=== PATIENT | female | born 2000 | race Caucasian/White ===

== ENCOUNTER 2019-09-12 05:20 | Inpatient (IN) | payer OTHER ==
[2019-09-05 11:45] LABS: ABSOLUTE EOSINOPHILS # (AUTO) 0.2 10^3/uL (0.0-0.6); ABSOLUTE LYMPHOCYTES (AUTO) 2.4 10^3/uL (0.5-4.7); ABSOLUTE NEUT (AUTO) 7.1 10^3/uL (1.7-8.2); BASOPHILS % (AUTO) 0.3 % (0-2); EOSINOPHILS % (AUTO) 1.4 % (0-6); HEMATOCRIT 35.9 % (36.0-47.0); HEMOGLOBIN 12.5 g/dL (12.0-15.5); LYMPHOCYTES % (AUTO) 22.7 % (13-45); MEAN CORPUSCULAR HGB CONC 34.9 g/dL (32.0-36.0); MEAN CORPUSCULAR VOLUME 86 fl (80-97); MONOCYTES % (AUTO) 9.3 % (3-13); PLATELET COUNT 132 10^3/uL (150-450); RED BLOOD COUNT 4.17 10^6/uL (3.72-5.28); RED CELL DISTRIBUTION WIDTH 14.2 % (11.5-14.0); SEGMENTED NEUTROPHILS % (AUTO) 66.3 % (42-78); TOTAL CELLS COUNTED % (AUTO) 100 %; WHITE BLOOD COUNT 10.7 10^3/uL (4.0-10.5)
[2019-09-05 11:50] LABS: APPEARANCE,URINE CLOUDY; BILIRUBIN,URINE NEGATIVE (NEGATIVE); COLOR,URINE YELLOW; GLUCOSE, URINE NEGATIVE (NEGATIVE); KETONES,URINE NEGATIVE (NEGATIVE); LEUKOCYTE ESTERASE,URINE SMALL (NEGATIVE); NITRITE,URINE NEGATIVE (NEGATIVE); PROTEIN,URINE NEGATIVE (NEGATIVE); URINE SPECIFIC GRAVITY 1.005; UROBILINOGEN,URINE NEGATIVE mg/dL (<2.0)
[2019-09-05 12:05] LABS: URINE AMPHETAMINES SCREEN NEGATIVE; URINE BARBITURATES SCREEN NEGATIVE; URINE BENZODIAZEPINES SCREEN NEGATIVE; URINE COCAINE SCREEN NEGATIVE; URINE MARIJUANA (THC) SCREEN NEGATIVE; URINE METHADONE SCREEN NEGATIVE; URINE PHENCYCLIDINE SCREEN NEGATIVE
[~2019-09-12 05:20] MED LIST: CEFAZOLIN SODIUM 2 GM in DEXTROSE 5%-WATER 100 ML IV PRN; LACTATED RINGERS 1000 ML IV PRN; LIDOCAINE 0.5% INJ-PF (5 MG/ML) 50 ML SDV SUBCUT PRN; RINGERS SOLUTION,LACTATED 1,000 ML IV PRN
[2019-09-12 06:46] LABS: HEMATOCRIT 34.4 % (36.0-47.0); HEMOGLOBIN 11.9 g/dL (12.0-15.5); MEAN CORPUSCULAR HEMOGLOBIN 29.7 pg (27.0-33.4); MEAN CORPUSCULAR HGB CONC 34.7 g/dL (32.0-36.0); MEAN CORPUSCULAR VOLUME 86 fl (80-97); PLATELET COUNT 129 10^3/uL (150-450); RED BLOOD COUNT 4.01 10^6/uL (3.72-5.28); RED CELL DISTRIBUTION WIDTH 14.6 % (11.5-14.0); WHITE BLOOD COUNT 11.2 10^3/uL (4.0-10.5)
[2019-09-12 06:49] LABS: APPEARANCE,URINE CLEAR; BILIRUBIN,URINE NEGATIVE (NEGATIVE); COLOR,URINE STRAW; GLUCOSE, URINE NEGATIVE (NEGATIVE); KETONES,URINE NEGATIVE (NEGATIVE); LEUKOCYTE ESTERASE,URINE NEGATIVE (NEGATIVE); NITRITE,URINE NEGATIVE (NEGATIVE); PROTEIN,URINE NEGATIVE (NEGATIVE); URINE SPECIFIC GRAVITY 1.006; UROBILINOGEN,URINE NEGATIVE mg/dL (<2.0)
[2019-09-12 07:02] LABS: URINE AMPHETAMINES SCREEN NEGATIVE; URINE BARBITURATES SCREEN NEGATIVE; URINE BENZODIAZEPINES SCREEN NEGATIVE; URINE COCAINE SCREEN NEGATIVE; URINE MARIJUANA (THC) SCREEN NEGATIVE; URINE METHADONE SCREEN NEGATIVE; URINE PHENCYCLIDINE SCREEN NEGATIVE
[2019-09-12 07:09] LABS: ABSOLUTE LYMPHOCYTES# (MANUAL) 3.1 10^3/uL (0.5-4.7); ABSOLUTE MONOCYTES # (MANUAL) 1.2 10^3/uL (0.1-1.4); ANISOCYTOSIS SLIGHT; BAND NEUTROPHILS % (MANUAL) 1 % (3-5); BASOPHILS % (MANUAL) 0 % (0-2); EOSINOPHILS % (MANUAL) 3 % (0-6); LYMPHOCYTES % (MANUAL) 24 % (13-45); MONOCYTES % (MANUAL) 11 % (3-13); PLATELET COMMENT DECREASED; SEGMENTED NEUTROPHILS % (MAN) 57 % (42-78); TOTAL CELLS COUNTED 100
[2019-09-12 07:13] LABS: TOXIC GRANULATION SLIGHT
[2019-09-12] MEDS ORDERED: FENTANYL CITRATE INJ/PF 100 MCG/2 ML AMPUL ONE ×2 (07:26→21:51)
[2019-09-12] MEDS ORDERED: MIDAZOLAM 2 MG/2 ML INJ ONE ×2 (07:26→21:51)
[2019-09-12] MEDS ORDERED: ACETAMINOPHEN 1,000 MG/100 ML RTUPB IV ONE (07:26)
[2019-09-12] MEDS ORDERED: PHENYLEPHRINE HCL INJ/PF 10 MG/1 ML SDV ONE ×2 (07:26→09:52)
[2019-09-12] MEDS ORDERED: KETOROLAC TROMETHAMINE INJ/PF 30 MG/1 ML SDV ONE (07:26)
[2019-09-12] MEDS ORDERED: OXYTOCIN 10 UNIT/ML VIAL ONE (07:26)
[2019-09-12] MEDS ORDERED: EPHEDRINE SULFATE INJ 50 MG/1 ML AMPULE ONE (07:26)
[2019-09-12] MEDS ORDERED: ONDANSETRON HCL INJ/PF 4 MG/2 ML SDV ONE ×2 (07:26→09:52)
[2019-09-12] MEDS ORDERED: METHYLERGONOVINE MALEATE INJ/PF 0.2 MG/1 ML AMPULE ONE (07:27)
[2019-09-12] MEDS ORDERED: FENTANYL CITRATE INJ/PF 100 MCG/2 ML AMPUL IV PRN ×6 (08:36→22:51)
[2019-09-12] MEDS ORDERED: MORPHINE SULFATE 10 MG/ML INJ IV PRN ×2 (08:36→09:49)
[2019-09-12] MEDS ORDERED: ONDANSETRON HCL INJ/PF 4 MG/2 ML SDV IV PRN ×2 (08:36→22:51)
[2019-09-12] MEDS ORDERED: DIPHENHYDRAMINE HCL 50 MG/ML VIAL IV PRN ×2 (08:36→22:51)
[2019-09-12] MEDS ORDERED: PROMETHAZINE HCL INJ 25 MG/1 ML VIAL IV PRN ×4 (08:36→22:51)
[2019-09-12] MEDS ORDERED: OXYCODONE-ACETAMINOPHEN 5-325 MG TABLET PO PRN ×3 (08:36→09:49)
[2019-09-12] MEDS ORDERED: MEPERIDINE HCL/PF INJ 25 MG/1 ML DISP.SYRIN IV PRN ×2 (08:36→22:51)
[2019-09-12] MEDS ORDERED: HYDROMORPHONE HCL INJ/PF 2 MG/ML AMPULE ONE ×2 (09:00→21:51)
[2019-09-12] MEDS ORDERED: HYDROMORPHONE HCL INJ/PF 2 MG/ML AMPULE IV ONE (09:03)
[2019-09-12] MEDS ORDERED: BUPIVACAINE HCL 0.25 % INJ/PF (2.5 MG/1 ML) 30 ML VIAL ONE (09:28)
[2019-09-12] MEDS ORDERED: PROPOFOL INJ 200 MG/20 ML VIAL IV ONE ×2 (09:40→21:51)
[2019-09-12] MEDS ORDERED: OXYTOCIN/0.9 % SODIUM CHLORIDE 30 UNIT/500 ML RTUINJ IV PRN (09:49)
[2019-09-12] MEDS ORDERED: SIMETHICONE 80 MG TAB.CHEW PO PRN (09:49)
[2019-09-12] MEDS ORDERED: DIPH/PERTUSS(ACELL)/TETANUS VAC/PF 0.5 ML SYR (>=10YO) IM PRN (09:49)
[2019-09-12] MEDS ORDERED: ACETAMINOPHEN 1,000 MG/100 ML RTUPB IV PRN (09:49)
[2019-09-12] MEDS ORDERED: MEASLES,MUMPS&RUBELLA VACC/PF 0.5 ML VIAL SUBCUT PRN (09:49)
[2019-09-12] MEDS ORDERED: ACETAMINOPHEN 325 MG TABLET PO PRN (09:49)
[2019-09-12] MEDS ORDERED: NEOSTIGMINE METHYLSULFATE 10 MG/10 ML VIAL ONE (09:52)
[2019-09-12] MEDS ORDERED: ROCURONIUM BROMIDE INJ 50 MG/5 ML VIAL IV ONE (09:52)
[2019-09-12] MEDS ORDERED: DEXAMETHASONE SOD PHOSPHATE INJ 4 MG/1 ML VIAL ONE (09:52)
[2019-09-12] MEDS ORDERED: GLYCOPYRROLATE 1 MG/5 ML VIAL ONE (09:52)
[2019-09-12] MEDS ORDERED: METOCLOPRAMIDE HCL INJ/PF 10 MG/2 ML SDV ONE (09:52)
--- NOTE | 2019-09-12 09:59 | Operative Report ---
Operative Report DATE OF SURGERY: 09/12/19 PREOPERATIVE DIAGNOSIS: IUP @ 37 wks, di/di twins. POSTOPERATIVE DIAGNOSIS: same OPERATION: primary low transverse hysterotomy c/section SURGEON: REINA QUESADA ANESTHESIA: Spinal TISSUE REMOVED OR ALTERED: placentas COMPLICATIONS: none ESTIMATED BLOOD LOSS: 700 INTRAOPERATIVE FINDINGS: Male in cephalic presentation Apgars of 8 and 9, female also in cephalic presentation Apgars 8 and 9 PROCEDURE: PROCEDURE IN DETAIL: The patient was taken to the operating room, prepared and draped in a normal sterile fashion in a supine position with a leftward tilt. A transverse skin incision was made with a scalpel and carried through to the underlying layer of fascia with the same scalpel. The fascia was excised in the midline and extended laterally with Ravi. The fascia was then dissected from the rectus muscle sharply with Ravi and the rectus muscle was divided and the peritoneal cavity was entered sharply with the same Metzenbaum. With good visualization of the bladder and the uterus the bladder blade was inserted. The hysterotomy was nicked with a scalpel and extended laterally with surgeon finger fraction. The infant A was then delivered atraumatically. The nose and mouth were suctioned with a suction bulb, the cord was clamped and cut and handed off to awaiting pediatricians. Cord blood was collected. B was then delivered in a similar fashion .cord was clamped and cut it was handed off to awaiting pediatricians . Cord blood was collected . the placenta was removed manually. The uterus was exteriorized and cleared of clots and debris. The hysterotomy was closed with 0 Monocryl in a running, locked fashion. A second layer of the same suture was used to imbricate to ensure hemostasis. The uterus was returned to the abdomen and peritoneal cavity was cleared of clots and debris. The rectus muscle and peritoneum were repaired with mattress stitch of 2-0 Chromic. The fascia was closed with 0-Vicryl. The subcutaneous layer was closed with plain catgut and the skin was closed with 4-0 Vicryl. The patient tolerated the procedure well. Sponge, lap, and needle counts correct x2 and the patient was taken to recovery in stable condition.
[2019-09-12] MEDS: IBUPROFEN 800 MG TABLET PO SCH ×2 (15:03→20:23)
[2019-09-12] MEDS: OXYCODONE-ACETAMINOPHEN 5-325 MG TABLET PO PRN ×2 (15:04→20:22)
[2019-09-12] MEDS: RINGERS SOLUTION,LACTATED 1,000 ML IV PRN ×2 (16:12→21:26)
[2019-09-12 16:52] LABS: HEMATOCRIT 29.1 % (36.0-47.0); MEAN CORPUSCULAR HEMOGLOBIN 29.3 pg (27.0-33.4); MEAN CORPUSCULAR HGB CONC 33.7 g/dL (32.0-36.0); MEAN CORPUSCULAR VOLUME 87 fl (80-97); PLATELET COUNT 180 10^3/uL (150-450); RED BLOOD COUNT 3.34 10^6/uL (3.72-5.28); RED CELL DISTRIBUTION WIDTH 14.4 % (11.5-14.0); WHITE BLOOD COUNT 20.4 10^3/uL (4.0-10.5)
[2019-09-12 17:09] LABS: HEMOGLOBIN 9.8 g/dL (12.0-15.5)
[2019-09-12] MEDS: DOCUSATE SODIUM 100 MG CAPSULE PO SCH (18:10)
[2019-09-12] MEDS ORDERED: RINGERS SOLUTION,LACTATED 1,000 ML IV ONE (19:00)
[2019-09-12 21:01] LABS: HEMATOCRIT 23.4 % (36.0-47.0); MEAN CORPUSCULAR HEMOGLOBIN 29.7 pg (27.0-33.4); MEAN CORPUSCULAR HGB CONC 34.3 g/dL (32.0-36.0); MEAN CORPUSCULAR VOLUME 86 fl (80-97); PLATELET COUNT 181 10^3/uL (150-450); RED BLOOD COUNT 2.71 10^6/uL (3.72-5.28); RED CELL DISTRIBUTION WIDTH 14.3 % (11.5-14.0); WHITE BLOOD COUNT 20.3 10^3/uL (4.0-10.5)
[2019-09-12] MEDS ORDERED: NORMAL SALINE 250 ML IV PRN ×2 (21:05)
[2019-09-12] MEDS ORDERED: CEFAZOLIN 2 GM/D5W RTU 2 GM/50 ML RTUPB IV PRN (21:06)
[2019-09-12] MEDS ORDERED: CEFAZOLIN INJ 1 GM VIAL ONE (21:35)
[2019-09-12] MEDS ORDERED: LIDOCAINE 2% INJ-PF (20 MG/ML) 10 ML AMPUL ONE (21:51)
--- NOTE | 2019-09-13 00:16 | Operative Report ---
Operative Report DATE OF SURGERY: 09/12/19 PREOPERATIVE DIAGNOSIS: Postoperative hemorrhage POSTOPERATIVE DIAGNOSIS: Same OPERATION: Exploratory laparotomy with evacuation of hematoma and ligation of corner block cutter vessels SURGEON: REINA QUESADA ANESTHESIA: GA COMPLICATIONS: None ESTIMATED BLOOD LOSS: 2500 cc INTRAOPERATIVE FINDINGS: Approximately 2 L of coagulated blood in the abdomen, lots of bleeding from greater vessel on the rectus muscle, and a small ruptured vessel in the peritoneum. PROCEDURE: This is a patient who had become hypotensive on the floor post op from her primary section for that was performed for twin gestation. Evaluation of the patient noted that her hemoglobin level had dropped acutely from her preoperative level of 11.9 down to 8.0. Her abdomen was distended very tender to palpation patient was having difficulty taking a deep breath due to pain. Also noted to be very pale her conjunctiva was well injected capillary refill was normal. [place] that the patient must have an internal bleeding the decision was made to go to the operating room for a exploratory laparotomy counseling the patient and her appropriately. In the OR the patient was prepared and draped in normal sterile fashion in supine position under general anesthesia. Patient's Pfannenstiel incision was reopened using scissors to remove removal of the previous sutures. The fascia was divided and the rectus muscle was divided as well and there was noted to be the above findings with a large amount of blood clot in the patient's abdomen. Suction and evacuated the pool suction. For the abdomen thoroughly looking for evidence of fresh bleeding. There was some larger vessels that were noted on the rectus muscle that were not actively bleeding however they did seem to possibly be the source of this okay let coagulated blood. Vessels were tied off with 0 Vicryl. The hysterotomy was carefully inspected after exteriorizing of the uterus. It seemed to possibly be a small amount of oozing coming from the right lateral aspect of the hysterotomy and this was tied off with a figure-of-e ight 0 Vicryl. We continued exploration of the abdomen as we were noting that there is still some pooling of old blood seem to be mixed with a small amount of fresh blood as well upper abdomen in the paracolic gutter. We noted that on the peritoneum just above where the blood continue to pool was a roughage that seem to be oozing significantly. 2 [id number] sutures of 0 Vicryl in this rough edge in the bruising and pulling immediately improved. We continue to hold pressure on the abdomen with wet laparotomy sponges for a few more minutes currently 10 minutes, after removal of the laparotomy sponges there was no further pooling noted and no further oozing noted therefore the and was made to conclude the case was returned to the abdomen and we watched for any further bleeding. Place a piece of Interceed on the patient's hysterotomy at the right lateral lateral position. I reapproximated the peritoneum and muscle with a mattress stitch of 2-0 chromic. And closed the fascia with 0 Vicryl running. Closed the subcutaneous layer with a plain catgut and a closed the skin with 4-0 Vicryl. The patient did tolerate the procedure well the sponge lap and needle counts were correct x2. Serve the patient for several minutes in the OR postoperatively pressure was improving continue to improve in the PACU. Received 4 units of packed red blood cells surgery.
[2019-09-13] MEDS: RINGERS SOLUTION,LACTATED 1,000 ML IV PRN ×2 (01:20→09:22)
[2019-09-13] MEDS: IBUPROFEN 800 MG TABLET PO SCH ×4 (03:22→21:29)
[2019-09-13 06:11] LABS: HEMATOCRIT 32.4 % (36.0-47.0); MEAN CORPUSCULAR HEMOGLOBIN 28.6 pg (27.0-33.4); MEAN CORPUSCULAR HGB CONC 34.5 g/dL (32.0-36.0); MEAN CORPUSCULAR VOLUME 83 fl (80-97); PLATELET COUNT 119 10^3/uL (150-450); RED BLOOD COUNT 3.92 10^6/uL (3.72-5.28); RED CELL DISTRIBUTION WIDTH 18.2 % (11.5-14.0)
[2019-09-13 06:33] LABS: HEMOGLOBIN 11.2 g/dL (12.0-15.5)
--- NOTE | 2019-09-13 08:18 | PDOC PROGRESS REPORT ---
Subjective Progress Note for:: 09/13/19 Subjective:: patient feeling much better. Asking to have driscoll removed. She has been ambulating without difficulty. Reason For Visit: O82 ENCOUNTER FOR DELIVERY WITHOUT INDICA Physical Exam - Physical Exam Vital Signs: Temp Pulse Resp BP Pulse Ox 98.2 F 103 H 18 108/61 97 09/13/19 07:38 09/13/19 07:38 09/13/19 07:38 09/13/19 07:38 09/13/19 07:38 Intake & Output 09/12/19 09/13/19 09/14/19 06:59 06:59 06:59 Intake Total 4242 Output Total 3680 Balance 562 Weight 121.109 kg General appearance: PRESENT: no acute distress, cooperative GI/Abdominal exam: PRESENT: soft, tenderness - appropriately tender for post op. no drainage Result Laboratory Results: 09/13/19 05:35 09/11/19 09/12/19 09/12/19 15:57 16:38 20:45 WBC 20.4 H 20.3 H RBC 3.34 L 2.71 L Hgb 9.8 L D 8.0 L Hct 29.1 L 23.4 L MCV 87 86 MCH 29.3 29.7 MCHC 33.7 34.3 RDW 14.4 H 14.3 H Plt Count 180 181 Blood Type A NEGATIVE Antibody Screen POSITIVE 09/13/19 05:35 WBC 20.0 H RBC 3.92 Hgb 11.2 L D Hct 32.4 L MCV 83 MCH 28.6 MCHC 34.5 RDW 18.2 H Plt Count 119 L Blood Type Antibody Screen Assessment & Plan - Diagnosis (1) Qualifiers: Weeks of gestation: 37 weeks Qualified Code(s): Z3A.37 - 37 weeks gestation of Is this a current diagnosis for this admission?: Yes (2) Status post Is this a current diagnosis for this admission?: Yes (3) Post-op bleeding Qualifiers: Laterality: bilateral Is this a current diagnosis for this admission?: Yes (4) Twin gestation in third trimester Qualifiers: Multiple gestation type: dichorionic and diamniotic Qualified Code(s): O30.043 - Twin , dichorionic/diamniotic, third trimester Is this a current diagnosis for this admission?: Yes (5) Anemia Qualifiers: Other causes of anemia: acute posthemorrhagic Is this a current diagnosis for this admission?: Yes - Time Time Spent with patient: Less than 15 minutes - Inpatient Certification Based on my medical assessment, after consideration of the patient's c omorbidities, presenting symptoms, or acuity I expect that the services needed warrant INPATIENT care.: Yes I certify that my determination is in accordance with my understanding of Medicare's requirements for reasonable and necessary INPATIENT services [42 CFR 412.3e].: Yes Medical Necessity: Need Close Monitoring Due to Risk of Patient Decompensation - Plan Summary Plan Summary: patient doing very well. status post 4 units of blood. continue to monitor closely and hopefully discharge tomorrow am.
[2019-09-13] MEDS: DOCUSATE SODIUM 100 MG CAPSULE PO SCH ×2 (09:23→17:10)
[2019-09-13] MEDS: PRENATAL VITAMIN W DHA CAPSULE PO SCH (09:24)
[2019-09-14] MEDS: IBUPROFEN 800 MG TABLET PO SCH ×4 (02:02→21:45)
[2019-09-14] MEDS: DOCUSATE SODIUM 100 MG CAPSULE PO SCH ×2 (09:18→17:48)
[2019-09-14] MEDS: PRENATAL VITAMIN W DHA CAPSULE PO SCH (09:18)
--- NOTE | 2019-09-14 09:49 | PDOC PROGRESS REPORT ---
Subjective-OB Progress Note for:: 09/14/19 - POD #2, pt doing well, smiling, states feels much better today. UOB, ambulaiting w/out difficulty, voiding, A negative, Babies are A negative, Rubella immune, . One of the twins needs to go under the bili-lights today Physical Exam (OB) Vital Signs: Temp Pulse Resp BP Pulse Ox 98.5 F 115 H 20 115/58 L 98 09/14/19 03:49 09/14/19 03:49 09/14/19 00:59 09/14/19 03:49 09/14/19 03:49 Intake & Output 09/13/19 09/14/19 09/15/19 06:59 06:59 06:59 Intake Total 4242 1900 Output Total 3680 600 Balance 562 1300 - General General Appearance: Appears well, Alert In distress: None - PIH/Pre-Eclampsia Clonus: Negative Headache: Absent Epigastric Pain: No Visual Changes: No - Dressing Removed: No Incision: Dressing Closure Type: Pressure d - Lochia Lochia Amount: Small 10-25 ml Lochia Color: Rubra/Red - Abdomen Description: Soft, Round Hernia Present: No Fundal Description: Firm, Midline Fundal Height: u/u - u/2 - Respiratory Respiratory Status: No respiratory distress - Abdominal Distension: No distension Tenderness: Nontender - Genitourinary Genitourinary Note: voiding - Extremities Upper extremity: Normal inspection Lower extremities: Edema - Neurological Cognition: Normal Orientation: AAOx4 - Psychological Associated symptoms: Normal affect, Normal mood - Skin Skin Temperature: Warm Skin Moisture: Dry Skin Color: [place] Objective-Diagnostic Laboratory: 09/13/19 05:35 09/11/19 15:57 Blood Type A NEGATIVE Antibody Screen POSITIVE Assessment and Plan(PN) - Assessment and Plan (1) Normal course Is this a current diagnosis for this admission?: Yes (2) Anemia Qualifiers: Other causes of anemia: acute posthemorrhagic Is this a current diagnosis for this admission?: Yes (3) Post-op bleeding Qualifiers: Laterality: bilateral Is this a current diagnosis for this admission?: Yes (4) Qualifiers: Weeks of gestation: 37 weeks Qualified Code(s): Z3A.37 - 37 weeks gestation of Is this a current diagnosis for this admission?: Yes (5) Status post Is this a current diagnosis for this admission?: Yes (6) Twin gestation in third trimester Qualifiers: Multiple gestation type: dichorionic and diamniotic Qualified Code(s): O30. 043 - Twin , dichorionic/diamniotic, third trimester Is this a current diagnosis for this admission?: Yes Plan:: Ambulation encouraged - Time Spent with Patient Time with patient: Less than 15 minutes Medications reviewed and adjusted accordingly: Yes - Disposition Anticipated Discharge: Home Within: within 24 hours
[2019-09-15] MEDS: IBUPROFEN 800 MG TABLET PO SCH ×2 (03:18→10:05)
[2019-09-15] MEDS: DOCUSATE SODIUM 100 MG CAPSULE PO SCH (10:05)
[2019-09-15] MEDS: PRENATAL VITAMIN W DHA CAPSULE PO SCH (10:05)
--- NOTE | 2019-09-15 10:05 | PDOC DISCHARGE SUMMARY ---
Impression - Admit/DC Date/PCP Admission Date/Primary Care Provider: 09/12/19 05:20 ANGUS MANNING MD Discharge Date: 09/15/19 - POD #3, doing well, no complaints. A negative, twins are A negative, Rubella immune, breast/ pumping. UOB voiding, no dizziness, SOB or increased bleeding - Discharge Diagnosis (1) Normal course Is this a current diagnosis for this admission?: Yes (2) Anemia Is this a current diagnosis for this admission?: Yes (3) Post-op bleeding Is this a current diagnosis for this admission?: Yes (4) Is this a current diagnosis for this admission?: Yes (5) Status post Is this a current diagnosis for this admission?: Yes (6) Twin gestation in third trimester Is this a current diagnosis for this admission?: Yes - Additional Information Resuscitation Status: Full Code Discharge Diet: Regular Discharge Activity: Activity As Tolerated, Balance Activity w/Rest, No Driving, No Lifting Over 10 Pounds, No Lifting/Push/Pulling, Pelvic Rest, No tub bath Referrals: ANGUS MANNING MD [Primary Care Provider] - Prescriptions: Ibuprofen [Motrin 800 mg Tablet] 800 mg PO Q6A #60 tablet Oxycodone HCl/Acetaminophen [Percocet 5-325 mg Tablet] 1 tab PO Q4HP PRN #30 tablet PRN Reason: Pain Scale Of 4 Home Medications: Pnv No.95/Ferrous Fum/Folic AC [ Caplet] 1 each PO 09/05/19 Ibuprofen [Motrin 800 mg Tablet] 800 mg PO Q6A #60 tablet 09/14/19 Oxycodone HCl/Acetaminophen [Percocet 5-325 mg Tablet] 1 tab PO Q4HP PRN #30 tablet 09/14/19 HPI Reason(s) for Admission: Ceasarean Section-Primary, Group B Strep Positive, Twins Intrapartum Procedure(s): : Low Cervical, Transverse, Other Intrapartum Procedure Note: see Op note due to pt w/ Post Op bleeding, taken back to the OR. Results Laboratory Results: WBC 20.0 10^3/uL (4.0-10.5) H 09/13/19 05:35 RBC 3.92 10^6/uL (3.72-5.28) 09/13/19 05:35 Hgb 11.2 g/dL (12.0-15.5) L D 09/13/19 05:35 Hct 32.4 % (36.0-47.0) L 09/13/19 05:35 MCV 83 fl (80-97) 09/13/19 05:35 MCH 28.6 pg (27.0-33.4) 09/13/19 05:35 MCHC 34.5 g/dL (32.0-36.0) 09/13/19 05:35 RDW 18.2 % (11.5-14.0) H 09/13/19 05:35 Plt Count 119 10^3/uL (150-450) L 09/13/19 05:35 Lymph % (Auto) Not Reportable 09/12/19 06:20 [place] % (Auto) Not Reportable 09/12/19 06:20 Eos % (Auto) Not Reportable 09/12/19 06:20 Baso % (Auto) Not Reportable 09/12/19 06:20 Absolute Neuts (auto) Not Reportable 09/12/19 06:20 Absolute Lymphs (auto) Not Reportable 09/12/19 06:20 Absolute Monos (auto) Not Reportable 09/12/19 06:20 Absolute Eos (auto) Not Reportable 09/12/19 06:20 Absolute Basos (auto) Not Reportable 09/12/19 06:20 Total Counted 100 09/12/19 06:20 Seg Neutrophils % Not Reportable 09/12/19 06:20 Seg Neuts % (Manual) 57 % (42-78) 09/12/19 06:20 Band Neutrophils % 1 % (3-5) L 09/12/19 06:20 Lymphocytes % (Manual) 24 % (13-45) 09/12/19 06:20 Atypical Lymphs % 4 % (0) 09/12/19 06:20 Monocytes % (Manual) 11 % (3-13) 09/12/19 06:20 Eosinophils % (Manual) 3 % (0-6) 09/12/19 06:20 Basophils % (Manual) 0 % (0-2) 09/12/19 06:20 Abs Neuts (Manual) 6.5 10^3/uL (1.7-8.2) 09/12/19 06:20 Abs Lymphs (Manual) 3.1 10^3/uL (0.5-4.7) 09/12/19 06:20 Abs Monocytes (Manual) 1.2 10^3/uL (0.1-1.4) 09/12/19 06:20 Absolute Eos (Manual) 0.3 10^3/uL (0.0-0.6) 09/12/19 06:20 Abs Basophils (Manual) 0.0 10^3/uL (0.0-0.2) 09/12/19 06:20 Toxic Granulation SLIGHT 09/12/19 06:20 Platelet Comment DECREASED 09/12/19 06:20 Anisocytosis SLIGHT 09/12/19 06:20 Urine Color STRAW 09/12/19 05:45 Urine Appearance CLEAR 09/12/19 05:45 Urine pH 6.0 (5.0-9.0) 09/12/19 05:45 Ur Specific [place] 1.006 09/12/19 05:45 Urine Protein NEGATIVE mg/dL (NEGATIVE) 09/12/19 05:45 Urine Glucose (UA) NEGATIVE mg/dL (NEGATIVE) 09/12/19 05:45 Urine Ketones NEGATIVE mg/dL (NEGATIVE) 09/12/19 05:45 Urine Blood NEGATIVE (NEGATIVE) 09/12/19 05:45 Urine Nitrite NEGATIVE (NEGATIVE) 09/12/19 05:45 Urine Bilirubin NEGATIVE (NEGATIVE) 09/12/19 05:45 Urine Urobilinogen NEGATIVE mg/dL (<2.0) 09/12/19 05:45 Ur Leukocyte Esterase NEGATIVE (NEGATIVE) 09/12/19 05:45 Urine WBC (Auto) 1 /HPF 09/12/19 05:45 Urine RBC (Auto) 1 /HPF 09/12/19 05:45 U Hyaline Cast (Auto) 1 /LPF 09/05/19 11:15 Urine Bacteria (Auto) TRACE /HPF 09/12/19 05:45 Squamous Epi Cells Auto <1 /HPF 09/12/19 05:45 Urine Mucus (Auto) RARE /LPF 09/12/19 05:45 Urine Ascorbic Acid NEGATIVE (NEGATIVE) 09/12/19 05:45 Urine Opiates Screen NEGATIVE 09/12/19 05:45 Urine Methadone Screen NEGATIVE 09/12/19 05:45 Ur Barbiturates Screen NEGATIVE 09/12/19 05:45 Ur Phencyclidine Scrn NEGATIVE 09/12/19 05:45 Ur Amphetamines Screen NEGATIVE 09/12/19 05:45 U Benzodiazepines Scrn NEGATIVE 09/12/19 05:45 Urine Cocaine Screen NEGATIVE 09/12/19 05:45 U Marijuana (THC) Screen NEGATIVE 09/12/19 05:45 COVID-19 Source NASOPHARYNGEAL 09/05/19 09:57 COVID-19 ([place]) NOT DETECTED 09/05/19 09:57 Blood Type A NEGATIVE 09/11/19 15:57 Blood Type Confirm A NEGATIVE 09/12/19 07:50 Antibody Screen POSITIVE 09/11/19 15:57 Antibody Identification RHOGAM INDUCED ANTI-D 09/11/19 15:57 Crossmatch See Detail 09/11/19 15:57 Plan Plan of Treatment: d/c home. F/up with [facility] in one week for incision and BP check. Precautions reviewed. Time Spent: Less than 30 Minutes
[2019-09-15 13:02] VITALS: BP 93/53
== END 2019-09-15 13:51 | disposition home or self-care (01) | DRG 787 ==
LOC: 2N 05:20
PROVIDERS: ADMIT Obstetrics & Gynecology; ATTEND Obstetrics & Gynecology
PROC: 0W3J0ZZ Control Bleeding in Pelvic Cavity, Open Approach (ICD-10-PCS; 2019-09-12)
PROC: 30233N1 Transfusion of Nonautologous Red Blood Cells into Peripheral Vein, Percutaneous Approach (ICD-10-PCS; 2019-09-12)
PROC: 10D00Z1 Extraction of Products of Conception, Low, Open Approach (ICD-10-PCS; principal; 2019-09-12 23:00)
DX: O30.043 Twin pregnancy, dichorionic/diamniotic, third trimester (principal); O72.1 Other immediate postpartum hemorrhage; D62 Acute posthemorrhagic anemia; O26.893 Other specified pregnancy related conditions, third trimester; O90.81 Anemia of the puerperium; O99.824 Streptococcus B carrier state complicating childbirth; Z37.2 Twins, both liveborn; Z67.11 Type A blood, Rh negative; Z3A.37 37 weeks gestation of pregnancy; Z03.818 Encounter for observation for suspected exposure to other biological agents ruled out
CPT/HCPCS: 1961; 36415; 36430; 59025; 80307; 81001; 840; 85025; 85027; 86850; 86870; 86900; 86901; 86920; 86922; 87635; 88307; 94799; C1765; J0131; J0690; J1100; J1170; J1885; J2210; J2250; J2270; J2370; J2405; J2590; J2704; J2710; J2765; J3010; J3490; J7060; J7120; P9016